=== PATIENT | male | born 1965 | race Caucasian/White ===

== ENCOUNTER 2023-07-03 20:20 | Emergency (ER) | payer OTHER ==
[2023-07-03 21:18] LABS: BASOPHILS PERCENT AUTO 0.4 % (0.0-1.0); EOSINOPHILS ABSOLUTE AUTO 0.1 K/mm3 (0.0-0.4); EOSINOPHILS PERCENT AUTO 1.3 % (0.0-6.0); HEMATOCRIT 40.2 % (42.0-52.0); HEMOGLOBIN 13.7 gm/dl (14.0-18.0); IMMATURE GRAN ABSOLUTE AUTO 0.04 K/mm3 (0.00-0.05); IMMATURE GRAN PERCENT AUTO 0.5 % (0.0-0.4); LYMPHOCYTES ABSOLUTE AUTO 1.5 K/mm3 (1.0-4.8); LYMPHOCYTES PERCENT AUTO 18.3 % (24.0-44.0); MEAN CORPUSCULAR HEMOGLOBIN 31.9 pg (28.0-32.0); MEAN CORPUSCULAR HGB CONC 34.1 g/dl (32.0-36.0); MEAN CORPUSCULAR VOLUME 93.7 fl (83.0-99.0); MEAN PLATELET VOLUME 9.8 fl (9.4-12.4); MONOCYTES ABSOLUTE AUTO 0.6 K/mm3 (0.0-0.8); NEUTROPHILS PERCENT AUTO 72.5 % (41.0-71.0); PLATELET COUNT,PLT 230 K/mm3 (150-400); RED BLOOD CELL COUNT 4.29 M/mm3 (4.52-5.90); WHITE BLOOD CELL COUNT,WBC 8.23 K/mm3 (3.9-11.3)
[2023-07-03] MEDS: Sodium Chloride 0.9% 10 ML Syringe FLUSH PRN (21:18)
[2023-07-03] MEDS: Iopamidol 612 MG/ML 100 ML Bottle IVPUSH ONE (21:20)
[2023-07-03] MEDS: Iopamidol 612 MG/ML 30 ML SDV IVPUSH ONE (21:20)
[2023-07-03] MEDS: Sodium Chloride 0.9% 10 ML Syringe FLUSH ONE (21:20)
[2023-07-03 21:38] LABS: ALBUMIN 3.4 g/dl (3.4-5.0); ANION GAP 11.9 (5-15); BILIRUBIN TOTAL 0.4 mg/dL (0.2-1.0); BUN/CREATININE RATIO 11.4 (14-18); CALCIUM 8.3 mg/dL (8.5-10.1); CREATININE 1.4 mg/dL (0.7-1.3); EST CRCL DRUG DOSING (CG) 64.67 mL/min; POTASSIUM,K 3.9 mEq/L (3.5-5.1); PROTEIN TOTAL,TP 6.7 g/dl (6.4-8.2)
[2023-07-03] MEDS ORDERED: Celecoxib 100 MG Cap PO ONE (22:11)
[2023-07-03] MEDS: traMADol 50 MG Tab PO ONE (22:20)
== END 2023-07-03 23:50 | disposition home or self-care (01) ==
LOC: JD.ED 20:20
DX: S13.9XXA Sprain of joints and ligaments of unspecified parts of neck, initial encounter (principal); S20.211A Contusion of right front wall of thorax, initial encounter; I48.0 Paroxysmal atrial fibrillation; Z88.2 Allergy status to sulfonamides; Z88.1 Allergy status to other antibiotic agents; Z79.01 Long term (current) use of anticoagulants; Z79.899 Other long term (current) drug therapy; V49.40XA Driver injured in collision with unspecified motor vehicles in traffic accident, initial encounter; Y93.89 Activity, other specified
CPT/HCPCS: 36415; 70450; 71260; 72125; 74177; 80053; 83735; 85025; 93005; 99285; A9270; J3490; Q9967; 93010; 99284